=== PATIENT | male | born 1955 | race Caucasian/White ===

== ENCOUNTER 2019-06-07 07:13 | Day surgery (SDC) | payer OTHER | END 2019-06-07 12:50 | disposition home or self-care (01) | LOC: AMB-ENDOS 07:13 | DX: D12.5 Benign neoplasm of sigmoid colon (principal); K63.5 Polyp of colon ==

== ENCOUNTER 2020-07-03 09:02 | Day surgery (SDC) | payer OTHER | END 2020-07-03 14:44 | disposition home or self-care (01) | LOC: AMB-ENDOS 09:02 | PROVIDERS: ATTEND Surgery | DX: D12.5 Benign neoplasm of sigmoid colon (principal); Z20.828 Contact with and (suspected) exposure to other viral communicable diseases ==